=== PATIENT | female | born 1985 | race Caucasian/White ===

== ENCOUNTER 2018-01-18 21:03 | Emergency (ER) | payer OTHER ==
[~2018-01-18] VITALS: Ht 165.1 cm; Wt 117.9 kg
[~2018-01-18 21:03] MED LIST: ALBUTEROL INHAL17 GM IH; AMITRIPTYLINE H25 M2 PO; CARISOPRODOL 3350 MG PO; CYMBALTA60 MG PO; FIORICET 50-321 EACH PO; FLEXERIL PO; GLIPIZIDE5 MG PO; IBUPROFEN 600600 M1 PO; IBUPROFEN 800800 M1 PO; JANUMET 50-1,01 EACH PO; LANTUS100 UNIT/M SUBQ; LEXAPRO 10 MG T10 M1 PO; LIPITOR 20 MG T20 M1 PO; NORCO 10-325 T1 EACH PO; NORCO 5-325 TA1 EACH PO; NORFLEX100 MG PO; PENICILLIN V P500 MG PO; PENICILLIN VK500 M1 PO; PERCOCET 5-3251 EACH PO; PHENERGAN 25 MG25 M1 PO; PREDNISONE 10 M10 MG PO; PREDNISONE 20 M20 MG PO; PROZAC 10 MG CA10 MG PO; RANITIDINE 150150 M1 PO; TOPAMAX50 MG; TORADOL 10 MG T10 MG PO; TRAMADOL 50 MG50 MG PO; TRAZODONE HCL50 MG PO; VENTOLIN17 GM; VITAMIN D; VITAMIN D 5050000 I1 PO; VITAMIN D400 UNI1 PO; XANAX 0.5 MG0.5 MG PO; ZANAFLEX4 MG; ZANAFLEX4 MG PO; ZOFRAN ODT4 MG PO; ZPAK PO
[2018-01-18] MEDS ORDERED: ZANTAC 150MG T150 MG PO (21:15)
[2018-01-18] MEDS ORDERED: TRAMADOL 50 MG50 MG PO (21:53)
[2018-01-18 22:43] VITALS: BP 158/96
== END 2018-01-18 22:43 | disposition home or self-care (01) ==
LOC: ER 21:03
DX: S93.402A Sprain of unspecified ligament of left ankle, initial encounter (principal); G43.909 Migraine, unspecified, not intractable, without status migrainosus; J45.909 Unspecified asthma, uncomplicated; E11.9 Type 2 diabetes mellitus without complications; F32.9 Major depressive disorder, single episode, unspecified; K21.9 Gastro-esophageal reflux disease without esophagitis; F17.210 Nicotine dependence, cigarettes, uncomplicated; Z88.8 Allergy status to other drugs, medicaments and biological substances; X58.XXXA Exposure to other specified factors, initial encounter; Y93.89 Activity, other specified; Y92.89 Other specified places as the place of occurrence of the external cause; Y99.8 Other external cause status

== ENCOUNTER 2019-01-05 21:33 | Emergency (ER) | payer OTHER ==
[~2019-01-05] VITALS: Ht 165.1 cm; Wt 113.4 kg
[~2019-01-05 21:33] MED LIST changes: +AZITHROMYCIN 2250 MG PO; +IRON325 PO; +LISINOPRIL5 MG PO; +TESSALON PERLE100 MG PO; +VENTOLIN HFA 1818 GM INH; -VENTOLIN17 GM; +ZANTAC 150MG T150 MG PO
[2019-01-05 23:24] LABS: HEMATOCRIT 41.3 % (37.0-47.0); MCH 28.8 pg (26.0-34.0); MCHC 33.8 g/dL (28.0-37.0); MCV 85.1 fL (80.0-100.0); RBC 4.85 mil/uL (4.20-5.00); RDW 14.7 % (10.5-14.5); WBC 11.9 thou/uL (4.0-11.0)
[2019-01-05 23:40] LABS: CALCIUM 9.9 mg/dL (8.5-10.1); POTASSIUM 3.6 mmol/L (3.5-5.1)
[2019-01-05] MEDS ORDERED: PREDNISONE 20 M20 MG PO (23:56)
[2019-01-06 00:17] VITALS: BP 137/91
== END 2019-01-06 00:27 | disposition home or self-care (01) ==
LOC: ER 21:33
PROVIDERS: Emergency Medicine
DX: R21 Rash and other nonspecific skin eruption (principal); E11.9 Type 2 diabetes mellitus without complications; G43.909 Migraine, unspecified, not intractable, without status migrainosus; J45.909 Unspecified asthma, uncomplicated; K21.9 Gastro-esophageal reflux disease without esophagitis; F17.210 Nicotine dependence, cigarettes, uncomplicated; Z88.8 Allergy status to other drugs, medicaments and biological substances; Z79.4 Long term (current) use of insulin; Z98.890 Other specified postprocedural states

== ENCOUNTER 2019-10-04 17:04 | Emergency (ER) | payer OTHER ==
[~2019-10-04] VITALS: Ht 165.1 cm; Wt 121.6 kg
[2019-10-04 17:23] LABS: URINE BILIRUBIN NEGATIVE (Negative); URINE BLOOD 3+ (Negative); URINE COLOR YELLOW; URINE GLUCOSE-RANDOM* NEGATIVE (Negative); URINE KETONES NEGATIVE (Negative); URINE LEUKOCYTES-REFLEX NEGATIVE (Negative); URINE NITRITE-REFLEX NEGATIVE (Negative); URINE PROTEIN (DIPSTICK) TRACE (Negative); URINE SPECIFIC GRAVITY >= 1.030 (1.005-1.035); URINE UROBILINOGEN 0.2 E.U./dl (0.2-1.0)
[2019-10-04 17:30] LABS: URINE CLARITY SL HAZY
[2019-10-04 17:32] LABS: SQUAMOUS 0-3 Few /LPF (0-3); URINE RBC >20 Many /HPF (0-2); URINE WBC-REFLEX 0-5 Rare /HPF (0-5)
[2019-10-04 17:33] LABS: BACTERIA-REFLEX 1-9 Few /HPF (None Seen); CASTS None Seen /LPF (None Seen); CRYSTALS None Seen /LPF (None Seen)
[2019-10-04 17:54] LABS: ABSOLUTE NEUTROPHILS 4.6 thou/uL (1.4-8.2); BASOPHILS 2.6 % (0.0-2.0); EOSINOPHILS 7.9 % (0.0-3.0); HEMATOCRIT 42.4 % (37.0-47.0); HEMOGLOBIN 14.2 gm/dL (12.0-15.0); LYMPHOCYTES 32.9 % (24.0-44.0); MCH 30.6 pg (26.0-34.0); MCHC 33.6 g/dL (28.0-37.0); MCV 91.2 fL (80.0-100.0); MONOCYTES 5.5 % (1.0-8.0); POLYS 51.1 % (36.0-66.0); RBC 4.65 mil/uL (4.20-5.00)
[2019-10-04 17:55] LABS: CALCIUM 9.4 mg/dL (8.5-10.1); CREATININE 0.9 mg/dL (0.6-1.0); POTASSIUM 3.6 mmol/L (3.5-5.1)
[2019-10-04 18:02] LABS: ALBUMIN 3.9 g/dL (3.4-5.0); TOTAL BILIRUBIN 0.2 mg/dL (<0.1-1.0); TOTAL PROTEIN 7.5 g/dL (6.4-8.2)
[2019-10-04 18:18] LABS: PLATELET COUNT 221 thou/uL (150-400)
[2019-10-04 18:19] LABS: LARGE PLATELETS FEW
[2019-10-04] MEDS ORDERED: OMEPRAZOLE 20 M20 M1 PO (18:51)
[2019-10-04] MEDS ORDERED: ALPRAZOLAM 0.0.25 MG PO (18:52)
[2019-10-04] MEDS ORDERED: VITAMIN B-121000 MC2 PO (18:53)
[2019-10-04 20:25] VITALS: BP 157/85
--- NOTE | 2019-10-05 08:20 | EKG ---
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1985 Requested By: Erma Kauffman Order Number: [id number] MD: Martinez Rodriguez Measurements Intervals Marvell Rate: 78 P: 51 TN: 157 QRS: -42 QRSD: 92 T: 45 QT: 402 QTc: 458 Interpretive Statements Sinus rhythm Left axis deviation Low voltage, precordial leads Abnormal R-wave progression, late transition Baseline wander in lead(s) V2 Compared to ECG 11/01/2004 22:28:38 Electronically Signed On 10-05-2019 8:19:36 [employer] by Martinez Rodriguez [email or web address] <ELECTRONICALLY SIGNED> By: Martinez Rodriguez MD 10/05/19 0819 173 173 Martinez Rodriguez MD /EPI
== END 2019-10-04 20:25 | disposition home or self-care (01) ==
LOC: ER 17:04
PROVIDERS: Physician Assistant
DX: E86.0 Dehydration (principal); R42 Dizziness and giddiness; G43.909 Migraine, unspecified, not intractable, without status migrainosus; E11.9 Type 2 diabetes mellitus without complications; F32.9 Major depressive disorder, single episode, unspecified; F17.210 Nicotine dependence, cigarettes, uncomplicated; Z88.6 Allergy status to analgesic agent; Z88.8 Allergy status to other drugs, medicaments and biological substances

== ENCOUNTER 2019-10-22 19:27 | Emergency (ER) | payer OTHER ==
[~2019-10-22] VITALS: Ht 165.1 cm; Wt 117.9 kg
[~2019-10-22 19:27] MED LIST changes: +ALPRAZOLAM 0.0.25 MG PO; +OMEPRAZOLE 20 M20 M1 PO; +VITAMIN B-121000 MC2 PO
[2019-10-22] MEDS ORDERED: CYCLOBENZAPRINE5 MG PO (21:29)
[2019-10-22 22:01] VITALS: BP 134/88
== END 2019-10-22 22:02 | disposition home or self-care (01) ==
LOC: ER 19:27
DX: M62.830 Muscle spasm of back (principal); G43.909 Migraine, unspecified, not intractable, without status migrainosus; E11.9 Type 2 diabetes mellitus without complications; K21.9 Gastro-esophageal reflux disease without esophagitis; F17.210 Nicotine dependence, cigarettes, uncomplicated; Z79.899 Other long term (current) drug therapy

== ENCOUNTER 2020-10-18 21:41 | Emergency (ER) | payer OTHER ==
[~2020-10-18] VITALS: Ht 167.6 cm; Wt 106.6 kg
[~2020-10-18 21:41] MED LIST changes: +CYCLOBENZAPRINE5 MG PO
[2020-10-19] MEDS ORDERED: ZOFRAN ODT4 MG PO (01:27)
[2020-10-19 01:58] VITALS: BP 134/81
== END 2020-10-19 02:01 | disposition home or self-care (01) ==
LOC: ER 21:41
DX: G43.909 Migraine, unspecified, not intractable, without status migrainosus (principal); M25.512 Pain in left shoulder; E11.9 Type 2 diabetes mellitus without complications; K21.9 Gastro-esophageal reflux disease without esophagitis; J45.909 Unspecified asthma, uncomplicated; F17.210 Nicotine dependence, cigarettes, uncomplicated; Z79.899 Other long term (current) drug therapy; Z88.8 Allergy status to other drugs, medicaments and biological substances